=== PATIENT | female | born 1935 | race Caucasian/White ===

== ENCOUNTER 2017-02-23 09:31 | Emergency (ER) | payer OTHER ==
[~2017-02-23 09:31] MED LIST: LIPITOR TAB 2020 MG PO; LISINOPRIL20 MG PO; LOPRESSOR 25 MG25 MG PO; METOPROLOL SUCC25 MG PO; PLAVIX 75 MG TA75 MG PO
[2017-02-23 11:01] LABS: HEMOGLOBIN 14.1 gm/dl (12.3-15.3); RED BLOOD COUNT 4.69 M/UL (4.00-5.10); WHITE BLOOD COUNT 8.1 K/UL (4.5-11.0)
== END 2017-02-23 12:20 | disposition home or self-care (01) ==
LOC: ER1 09:31
PROVIDERS: Specialist/Technologist Athletic Trainer
DX: I13.0 Hypertensive heart and chronic kidney disease with heart failure and stage 1 through stage 4 chronic kidney disease, or unspecified chronic kidney disease (principal); I50.9 Heart failure, unspecified; N18.9 Chronic kidney disease, unspecified; I25.810 Atherosclerosis of coronary artery bypass graft(s) without angina pectoris; I25.2 Old myocardial infarction; Z95.1 Presence of aortocoronary bypass graft; Z79.02 Long term (current) use of antithrombotics/antiplatelets; Z79.899 Other long term (current) drug therapy
CPT/HCPCS: 36415; 71020; 80053; 82550; 82553; 83874; 83880; 84484; 85025; 85610; 85730; 93005; 96374; 99285; J1940

== ENCOUNTER → 2017-03-27 | Outpatient (CLI) | payer OTHER | LOC: KOH-I 12:49 | DX: I70.1 Atherosclerosis of renal artery (principal); N26.1 Atrophy of kidney (terminal) | CPT/HCPCS: 76775 ==

== ENCOUNTER → 2020-12-04 | Outpatient (CLI) | payer OTHER ==
[~2020-12-04] MED LIST changes: +ECOTRIN81 MG PO; +FUROSEMIDE20 MG PO; +IMDUR ER TAB 3030 MG PO
== END ==
LOC: KOH-I 10:31
DX: M53.3 Sacrococcygeal disorders, not elsewhere classified (principal); M47.816 Spondylosis without myelopathy or radiculopathy, lumbar region
CPT/HCPCS: 72100; 72220

== ENCOUNTER 2022-03-25 09:42 | Observation (INO) | payer OTHER ==
[~2022-03-25] VITALS: Ht 167.6 cm; Wt 63.5 kg
[~2022-03-25 09:42] MED LIST changes: -IMDUR ER TAB 3030 MG PO; +ISOSORBIDE MONO30 MG PO
[2022-03-25 11:12] LABS: HEMOGLOBIN 15.5 gm/dl (12.3-15.3); RED BLOOD COUNT 5.06 M/UL (4.00-5.10); WHITE BLOOD COUNT 8.8 K/UL (4.5-11.0)
[2022-03-25] MEDS ORDERED: LISINOPRIL10 MG PO (16:12)
[2022-03-25] MEDS ORDERED: FUROSEMIDE20 MG PO (16:13)
[2022-03-25] MEDS ORDERED: PROLIA INJ60 MG/1 ML SC (16:16)
[2022-03-25] MEDS ORDERED: TRIAMCINOLONE A80 GM TP (16:17)
[2022-03-25] MEDS ORDERED: TART CHERRY CA1 EACH PO (16:18)
[2022-03-26 01:24] LABS: HEMOGLOBIN 14.3 gm/dl (12.3-15.3); RED BLOOD COUNT 4.65 M/UL (4.00-5.10)
[2022-03-26 01:47] LABS: WHITE BLOOD COUNT 6.2 K/UL (4.5-11.0)
--- NOTE | 2022-03-26 15:08 | NUR ---
ICD INTERROGATED, REVIEW EXPERT CALLED AND REPORTED NO ISSUES WITH THE ICD BUT THAT THE PATIENT HAS BEEN IN FLUID EXCESS SINCE JANUARY.
[2022-03-26 18:59] LABS: CANDIDA ALBICANS Not Detected (Negative); CANDIDA KRUSEI Not Detected (Negative); CANDIDA TROPICALIS Not Detected (Negative); ESCHERICHIA COLI Not Detected (Negative); HAEMOPHILUS INFLUENZAE Not Detected (Negative); KLEBSIELLA OXYTOCA Not Detected (Negative); KLEBSIELLA PNEUMONIAE Not Detected (Negative); KPC-CARBAPENEM-RESISTANCE GENE Not Detected (Negative); PROTEUS Not Detected (Negative); PSEUDOMONAS AERUGINOSA Not Detected (Negative); SERRATIA MARCESANS Not Detected (Negative); STAPHYLOCOCCUS AUREUS Not Detected (Negative); STREP AGALACTIAE (GROUP B) Not Detected (Negative); STREP PYOGENES (GROUP A) Not Detected (Negative); STREPTOCOCCUS Not Detected (Negative); vanA/B (VANCOMYCIN RESIST GENE Not Detected (Negative)
[2022-03-26 20:10] LABS: STAPHYLOCOCCUS DETECTED (Negative)
[2022-03-27 08:19] LABS: RED BLOOD COUNT 4.89 M/UL (4.00-5.10); WHITE BLOOD COUNT 8.7 K/UL (4.5-11.0)
[2022-03-28 06:45] LABS: HEMOGLOBIN 13.7 gm/dl (12.3-15.3); RED BLOOD COUNT 4.54 M/UL (4.00-5.10); WHITE BLOOD COUNT 7.4 K/UL (4.5-11.0)
[2022-03-28 07:25] LABS: BUN/CREATININE RATIO 25 (0-10)
[2022-03-28] MEDS ORDERED: OMNICEF 300 MG300 MG PO (09:36)
--- NOTE | 2022-03-28 12:28 | NUR ---
[facility] CALLED
== END 2022-03-28 13:15 | disposition home or self-care (01) ==
LOC: ER1 09:42 → CDU 13:09 → MED SURG 4 13:09
PROVIDERS: Emergency Medicine; Physician Assistant; ADMIT Family Medicine
DX: N30.00 Acute cystitis without hematuria (principal); I25.10 Atherosclerotic heart disease of native coronary artery without angina pectoris; I13.0 Hypertensive heart and chronic kidney disease with heart failure and stage 1 through stage 4 chronic kidney disease, or unspecified chronic kidney disease; I50.22 Chronic systolic (congestive) heart failure; N18.30 Chronic kidney disease, stage 3 unspecified; I25.5 Ischemic cardiomyopathy; E78.5 Hyperlipidemia, unspecified; I44.30 Unspecified atrioventricular block; M10.9 Gout, unspecified; M81.0 Age-related osteoporosis without current pathological fracture; D69.6 Thrombocytopenia, unspecified; B96.1 Klebsiella pneumoniae [K. pneumoniae] as the cause of diseases classified elsewhere; I48.0 Paroxysmal atrial fibrillation; S09.90XA Unspecified injury of head, initial encounter; R77.8 Other specified abnormalities of plasma proteins; R00.1 Bradycardia, unspecified; Z79.02 Long term (current) use of antithrombotics/antiplatelets; Z79.82 Long term (current) use of aspirin; Z79.899 Other long term (current) drug therapy; Z91.041 Radiographic dye allergy status; Z95.1 Presence of aortocoronary bypass graft; Z91.81 History of falling; Z95.810 Presence of automatic (implantable) cardiac defibrillator; W19.XXXA Unspecified fall, initial encounter
CPT/HCPCS: ECHO; 36415; 70450; 71045; 80048; 80053; 81001; 82550; 82553; 84484; 85025; 87040; 87077; 87086; 87150; 87186; 93005; 93306; 96374; 96376; 97116-GP-CQ; 97162; 99285; G0378; J0696

== ENCOUNTER 2022-03-30 13:50 | Emergency (ER) | payer OTHER ==
[~2022-03-30 13:50] MED LIST changes: +LISINOPRIL10 MG PO; +OMNICEF 300 MG300 MG PO; +PROLIA INJ60 MG/1 ML SC; +TART CHERRY CA1 EACH PO; +TRIAMCINOLONE A80 GM TP
[2022-03-30 15:26] LABS: HEMOGLOBIN 15.1 gm/dl (12.3-15.3); RED BLOOD COUNT 4.92 M/UL (4.00-5.10); WHITE BLOOD COUNT 8.3 K/UL (4.5-11.0)
[2022-03-30 15:48] LABS: BUN/CREATININE RATIO 30 (0-10)
[2022-03-30] MEDS ORDERED: LASIX40 MG PO (18:24)
[2022-03-30] MEDS ORDERED: ANUSOL HC SUPP1 SUPP PR (18:35)
[2022-03-30] MEDS ORDERED: POTASSIUM CHLO20 ME1 PO (18:35)
== END 2022-03-30 22:07 | disposition home or self-care (01) ==
LOC: ER1 13:50
PROVIDERS: Emergency Medicine
DX: I50.1 Left ventricular failure, unspecified (principal)
CPT/HCPCS: 71045; 80053; 82550; 82553; 83880; 84484; 85025; 93005; 96374; 96375; 96376; 99285; J1200; J1940; J2930; Q9967

== ENCOUNTER → 2022-07-11 | Outpatient (CLI) | payer OTHER ==
[~2022-07-11] MED LIST changes: +ANUSOL HC SUPP1 SUPP PR; +LASIX40 MG PO; +POTASSIUM CHLO20 ME1 PO
== END ==
LOC: KOH-I 08:25
DX: R93.89 Abnormal findings on diagnostic imaging of other specified body structures (principal); R07.9 Chest pain, unspecified; R91.1 Solitary pulmonary nodule; R06.02 Shortness of breath; R53.1 Weakness; J90 Pleural effusion, not elsewhere classified; R18.8 Other ascites; I51.7 Cardiomegaly; K44.9 Diaphragmatic hernia without obstruction or gangrene
CPT/HCPCS: 71250

== ENCOUNTER 2022-07-15 09:15 | Emergency (ER) | payer OTHER ==
[2022-07-15 10:45] LABS: HEMOGLOBIN 15.2 gm/dl (12.3-15.3); RED BLOOD COUNT 4.89 M/UL (4.00-5.10); WHITE BLOOD COUNT 11.4 K/UL (4.5-11.0)
[2022-07-15] MEDS ORDERED: OMNICEF 300 MG300 MG PO (13:41)
== END 2022-07-15 13:55 | disposition home or self-care (01) ==
LOC: ER1 09:15
PROVIDERS: Student in an Organized Health Care Education/Training Program
DX: N39.0 Urinary tract infection, site not specified (principal); I12.9 Hypertensive chronic kidney disease with stage 1 through stage 4 chronic kidney disease, or unspecified chronic kidney disease; N18.9 Chronic kidney disease, unspecified; Z95.0 Presence of cardiac pacemaker
CPT/HCPCS: 71045; 80053; 81001; 82550; 82553; 84484; 85025; 93005; 96374; 99285; J0696